=== PATIENT | female | born 1970 | race Caucasian/White ===

== ENCOUNTER 2024-02-02 10:36 | Inpatient (IN) | payer MEDICAID, SELFPAY ==
[2024-02-02] VITALS (20 sets, daily range): BP systolic 100–160; BP diastolic 53–93; PULSE 63–96; RESP 15–22; TEMP 36.5–36.6; O2SAT 97–100; BMI 19.8
--- NOTE | ~2024-02-02 | MR_ITS ---
EXAMINATION: MR brain/brain stem wo/w con DATE: 02/03/2024 07:13 INDICATION: Seizure. TECHNIQUE: Magnetic resonance imaging (MRI) of the brain and brainstem was performed without and with 11 mL MultiHance intravenous contrast. COMPARISON: Head CT 02/02/2024 FINDINGS: There are scattered areas of nonspecific increased T2-weighted signal intensity in the cere bral white matter, which is within normal limits for the patient's age. Left anterolateral to the clyde s, there is a 2.5 x 0.7 cm mass with signal similar to cerebral spinal fluid on T1 and T2-weighted im ages, but with restricted diffusion and isointensity to gamez matter on FLAIR images. There is no acut e ischemic infarct or intracranial hemorrhage. The ventricles are normal in size. The orbits are norm al. There is mild mucosal thickening in the paranasal sinuses. The mastoid air cells are normal. IMPRESSION: 1. 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 Reviewed, dictated and finalized at location A.
--- NOTE | ~2024-02-02 | CT_ITS ---
EXAMINATION: CT brain wo con DATE: 02/02/2024 14:11 INDICATION: Seizure TECHNIQUE: Computed tomography (CT) of the head was performed without intravenous contrast. Sagittal and coronal reconstructions were performed. The mA was adjusted according to patient size. Iterative reconstruction technique was employed. The dose-length product was 1589.00 mGy-cm. COMPARISON: None FINDINGS: Motion artifact is seen on the multiple repeated sequences however there are sufficient overlapping r egions without motion artifact spanning the entire brain to allow for diagnostic evaluation. No acute intracranial hemorrhage, acute infarction or abnormal extra axial fluid collection. Ventricles are n ormal and symmetric. No mass/mass effect. The orbits, paranasal sinuses and mastoid air cells are nor mal. IMPRESSION: 1. Normal brain. No acute intracranial process. Reviewed, dictated and finalized at location B.
--- NOTE | 2024-02-02 11:54 | ECG_ITS ---
Test Date: 2024-02-02 14:27:56 Measurements Intervals [place] Rate: 76 P: 78 DE: 152 QRS: 59 QRSD: 94 T: 49 QT: 381 QTc: 430 Interpretive Statements SINUS RHYTHM WITH SINUS ARRHYTHMIA POSSIBLE LEFT ATRIAL ENLARGEMENT INCOMPLETE RIGHT BUNDLE BRANCH BLOCK BORDERLINE ECG No previous ECG available for comparison Electronically Signed On 02-02-2024 18:37:23 CDT by Sean Johnson D.O.
--- NOTE | 2024-02-02 12:08 | ED.AMS ---
HPI - Altered Mental Status General Chief Complaint: Altered Mental Status Stated Complaint: AMS, disoriented following marijuana Time Seen by Provider: 02/02/24 12:07 History of Present Illness HPI narrative: Patient is a 53-year-old female who presents to the emergency department this afternoon due to concern for altered mental status. Patient was brought to our facility by EMS after her mother found confused and combative at home. Mother informed EMS that the patient has been smoking marijuana heavily recently. No a known history of seizure disorder. While in the emergency department, patient reportedly had a seizure like episode. She is currently alert and oriented times to on arrival, is combative and refusing to follow any commands or cooperate. Last known was last. Patient did state that she feels confused. Denies any blood thinner use, any recent falls or trauma and denies any pain including any headache, chest pain, or any abdominal pain. Related Data Allergies Allergy/AdvReac Type Severity Reaction Status Date / Time No Known Allergies Allergy Verified 02/02/24 14:17 Review of Systems Review of Systems: Unable to obtain a full review of systems secondary to patient's current agitated status. Exam Narrative: General: Altered and agitated, afebrile, in no acute distress. HEENT: PERRL, no rhinorrhea, no post nasal drip, oropharynx clear. Neck: Trachea midline, no JVD, no lymphadenopathy. Cardiovascular: Regular rate and rhythm, no murmurs, rubs or gallops, no peripheral edema. Respiratory: Clear to auscultation bilaterally, no tachypnea, no wheezing, no rhonchi, no rubs, no respiratory distress. Abdomen: Soft, nontender, nondistended, no rebound, no guarding, no peritoneal signs. Musculoskeletal: No joint swelling or deformity, normal muscle tone. Skin: No rashes or petechia, no signs of infection. Neurological: Altered, agitated, refusing to follow any comands, moving all 4 extremities spontaneously, no focal deficits within limitation of neurological examination. Course Vital Signs Vital signs: Vital Signs Temperature 97.7 F 02/02/24 10:59 Pulse Rate 82 02/02/24 10:59 Respiratory Rate 18 02/02/24 10:59 Blood Pressure 137/74 02/02/24 10:59 Pulse Oximetry 98 02/02/24 10:59 Oxygen Delivery Room Air 02/02/24 10:59 Temperature 97.7 F 02/02/24 10:59 Pulse Rate 75 02/02/24 13:16 Respiratory Rate 20 02/02/24 13:16 Blood Pressure 118/71 02/02/24 13:16 Pulse Oximetry 98 02/02/24 13:16 Oxygen Delivery Room Air 02/02/24 10:59 MDM - Altered Mental Status MDM Narrative Medical decision making narrative: The patient was evaluated by myself in the emergency department. History is obtained from patient who is an independent historian and physical exam was performed. External medical records were reviewed at this time. IV was established and pertinent tests were ordered. Patient was administered 2 mg of IV and Ativan initially. Patient is currently extremely agitated, refusing to follow any commands and ripping out her IV. She was placed on four-point restraints at this time and administered an additional 2 mg of IV Versed and 5 mg of IM a fall tall. EKG was obtained which revealed sinus rhythm rate of 76 beats per minute, no evidence of acute ischemia. EKG was independently interpreted by me and is currently pending official cardiology read. Laboratory results obtained revealing an elevated lactic acid of 8.6, mild elevation of CPK at 157, and anion gap metabolic acidosis with a gap of 20 likely secondary to lactic acidosis. Bicarb 15. Urinalysis unremarkable, urine drug screen test positive for cannabinoids. Imaging studies obtained included CT brain without IV contrast which was independently interpreted by me revealing no acute process, which is pending final radiology interpretation. Differential diagnosis considerations include infectious process, delirium,
[2024-02-02 12:33] LABS: Basophils Percent Auto 0.3 % (0.2-1.2); Eosinophils Absolute Auto 0.1 K/mm3 (0-0.3); Eosinophils Percent Auto 0.8 % (0-4.4); Hematocrit 40.3 % (37.0-47.0); Hemoglobin 13.5 g/dL (12.0-15.0); Immature Granulocyte Absolute 0.04 K/mm3 (0.00-0.031); Immature Granulocyte Percent A 0.4 % (0-0.5); Lymphocytes Absolute Auto 1.91 K/mm3 (0.9-3.2); Lymphocytes Percent Auto 17.6 % (18.3-44.2); Mean Corpuscular HGB Conc 33.5 g/dl (32-36); Mean Corpuscular Hemoglobin 30.3 pg (26-34); Mean Corpuscular Volume 90.4 fl (80-100); Mean Platelet Volume 10.6 fl (7.4-10.4); Monocytes Absolute Auto 0.6 K/mm3 (0.1-0.6); Monocytes Percent Auto 5.8 % (2.6-8.5); Neutrophils Absolute Auto 8.2 K/mm3 (1.3-6.7); Neutrophils Percent Auto 75.1 % (45.5-73.1); Platelet Count Result 268 k/mm3 (150-375); Red Blood Count 4.46 M/mm3 (4.2-5.4); Red Cell Distribution Width 13.5 % (11.5-14.5); White Blood Count 10.9 K/mm3 (4.5-10.0)
[2024-02-02 12:46] LABS: Anion Gap 20 mmol/L (4-12); Aspartate Amino Transferase 53 U/L (14-36); Bilirubin,Total 0.5 mg/dL (0.2-1.3); Blood Urea Nitrogen 16 mg/dL (7-17); Calcium 8.8 mg/dL (8.4-10.2); Carbon Dioxide 15 mmol/L (22-30); Chloride 102 mmol/L (98-107); Creatine Kinase 157 U/L (30-135); Estimated CRCL calculation 68 ml/min; Estimated Glomerular Filt Rate > 60; Glucose 139 mg/dL (65-110); Lactic Acid Reflex 8.6 mmol/L (0.7-2.0); Sodium 137 mmol/L (137-145)
[2024-02-02 12:47] LABS: Ethanol < 10 mg/dL (<10); Partial Thromboplastin Time 24.7 Seconds (22.3-36.8); Prothrombin Time 13.1 Seconds (11.1-14.7)
[2024-02-02 13:12] LABS: Add Urine Microscopic? YES; Appearance Urine Cloudy (Clear); Bacteria Urine None Seen /hpf; Bilirubin Urine Negative (Negative); Blood Urine 1+ (Negative); Color Urine Yellow (Yellow); Glucose Urine UA Negative (Negative); Ketones Urine Negative (Negative); Leukocyte Esterase Ur Negative LEU/UL (Negative); Need Manual Microscopic Reviewed; Nitrate Urine Negative (Negative); Protein Urine Trace mg/dL (Negative); RBC Urine 0-2 /hpf (0-2); Specific Grav Ur 1.015 (1.001-1.035); Squamous Epithelial Cell Urine None Seen /hpf (Few); Urobilinogen Urine 0.2 mg/dL (<2.0); WBC Urine 0-5 /hpf (0-3); pH Urine 5.5 (5.0-9.0)
[2024-02-02 13:27] LABS: Magnesium 1.9 mg/dL (1.6-2.3); Potassium 3.9 mmol/L (3.4-5.0)
[2024-02-02 13:34] LABS: Amphetamine Screen Urine Negative (Negative); Barbiturate Screen Urine Negative (Negative); Benzodiazepines Screen Urine Negative (Negative); Cannabinoid Screen Urine Positive (Negative); Cocaine Screen Urine Negative (Negative); Methadone Screen Urine Negative (Negative); Opiate Screen Urine Negative (Negative); Phencyclidine Screen Urine Negative (Negative)
[2024-02-02] MEDS: SODIUM CHLORIDE 0.9% IV 1,000 ML 999 ML IV CONT (14:00)
[2024-02-02] MEDS: LORazepam INJ (*CRX) 2 MG/ML VIAL ×2 (14:15→14:20)
--- NOTE | 2024-02-02 15:15 | PM.IMHP ---
H&P: HPI History of Present Illness Date/Time: 02/02/24 15:15 Chief Complaint: Altered Mental Status, Agitation Narrative: 53 y/o F presents here with altered mental status and agitation with PMH of marijuana use, hypothyroidism, and brain tumor. The patient presents here via EMS from home for further evaluation of agitation and altered mental status. HPI obtained through chart review, ED provider report, patient report, and patient's mother's report. The patient's mother reports that she found the patient confused, eyes rolled upward, back arched, foaming at the mouth, agitated/combative in her bed at around 09:30. Episode lasted for approximately 5 minutes. She heard a gurgling/growling sound from the patient's room which prompted her to investigate. No witnessed tremors or shaking at home by the patient's mother or EMS. EMS reported to the ED that upon their arrival the patient was confused and combative. Arrived A&O times 2-3 to the emergency department. The patient's mother reports she has a history of heavy marijuana use, brain tumor (was diagnosed in [place], no interventions were indicated unless patient developed symptoms), and frequent vasovagal events. Reports that she will pass out/vasovagal with blood draws, talking about eyes etc. After arrival to the emergency department, patient remained combative of and reported to the staff that she felt confused. Per mother, she noted second episode of back arching, eyes rolling upward, and stiffness that lasted for approximately 1 minute and ceased without intervention. Denied tongue trauma, loss of bowel or bladder, headache, chest pain, or shortness of breath during intake. Initial VS at presentation: 97.7? F, HR 82, RR 18, 137/74, and 98% on RA. ED workup showed: WBC 10.9, normal coags, gap 20, glucose 139, lactic acid 8.6, creatinine 0.7 and GFR >60, CK 157, and UA was cloudy with 1+ blood otherwise unremarkable. UDS positive for marijuana, negative ETOH. Head CT showed normal brain and no acute intracranial process. Review of Systems Review of Systems: ROS unobtainable: Yes unobtainable due to mental status PMFSH Past Medical History Medical History Anxiety and depression Complex partial seizure History of brain tumor Hypothyroidism Surgical History Surgical History History of hand surgery fixation of fractures to 2 fingers Social History Social History Smoking packs per day: 1 Smoking cigarettes per day: 20.0 Years smoked: 24 Smoking pack-years: 24.00 Smoking status: Former smoker Tobacco type: cigarettes Alcohol intake: current Drinks per week: 1 Substance use: current Substance use type: marijuana Other substance usage details: Daily marijuana Do You Feel Safe in your Home?: Yes Lack of Transportation: No Lack of Food: Never True Current Housing: I Have Housing Concerned About Future Housing: No Difficulty Paying Gas/Electric Bills: No Difficulty Paying for Meds: No Currently Unemployed: Decline to Answer Education: Don't Know Difficulty w/ Childcare or Family Care: No Spiritual care concerns: No Meds Home Medications and Allergies Home Medications Medication Instructions Recorded Confirmed Type levothyroxine 75 mcg tablet 75 mcg PO DAILY 02/02/24 02/02/24 History Allergies Allergy/AdvReac Type Severity Reaction Status Date / Time No Known Allergies Allergy Verified 02/02/24 17:22 Vital Signs Vital Signs - 24 hr 02/02/24 10:59 02/02/24 12:14 02/02/24 12:16 Temperature 97.7 F Pulse Rate 82 91 96 Respiratory Rate 18 18 22 H Blood Pressure 137/74 160/76 H 133/82 Pulse Oximetry 98 97 Oxygen Delivery Room Air 02/02/24 12:35 02/02/24 13:16 Temperature Pulse Rate 88 75 Respiratory Rate 15 20 Blood Press
[2024-02-02 15:28] LABS: Reflex Lactic Acid Yes or No Add Lactic
--- NOTE | 2024-02-02 15:54 | WPDNEURCNPN ---
Assessment and Plan Assessment and plan (1) Complex partial seizure: Code(s): G40.209 - Localization-related (focal) (partial) symptomatic epilepsy and epileptic syndromes with complex partial seizures, not intractable, without status epilepticus Status: Acute (2) Altered mental status: Qualifiers: Altered mental status type: disorientation Qualified Code(s): R41.0 - Disorientation, unspecified Code(s): R41.82 - Altered mental status, unspecified Status: Acute (3) History of brain tumor: Code(s): Z87.898 - Personal history of other specified conditions Status: Acute Plan Although the 2nd spell occurred before she had completely recovered but she was is significant improvement in the mental status according to the mother. I would suggest to start her on Keppra 1500 mg initially then followed by herself mg twice a day. MRI of the brain with and without contrast of the neck recommended. Initial CT scan without contrast did not show any significant abnormality. An EEG is also recommended. He should follow-up progress I alerted the mother regarding the possible effects of Keppra which may include competitive nurse particularly since there is a history of that number the left given the situation we can start from this medication she has had less likely his trach in case he does have brain tumor and she required any treatment thereof. It can be changed to a different anticonvulsant depending upon the need. Consult date: 02/02/24 HPI: Araceli Mcguire is a 53 year old female brought to the hospital by her mother and brother with a history that the mother heard a noise from her daughter's room and when she a [place] there she was unresponsive and having foaming from the mouth and her eyes had rolled up. No jerking of the body but she appeared confused or unresponsive. This went on for quite some time and after that she became combative. She was brought into the hospital by ambulance and was combative even during the journey. She had another spell which was brief in the waiting area and after that she became so combative that she required strain pre emergency room physician spoke to me and I went to see her in the emergency room previous he was given sedation and was in hands and feet to strain with her mother and brother by the side. the family members were very helpful and described that she has moved from [place] to this area 9 months ago. She was found to have a tumor in the brain 3 years ago but that did not require any intervention. She is advised that if she has any problem then this would need to be evaluated. There is no prior history of any seizures however she has had some psychiatric problems on ongoing basis. In the last several months he has been noted to be frequently argumentative or combative. Review of Systems Review of Systems: ROS unobtainable: Yes unobtainable due to mental status PMFSH Past Medical History Medical History (Updated 02/02/24 @ 15:58 by Johanna Seaman MD) Complex partial seizure Meds Home Medications and Allergies Allergies Allergy/AdvReac Type Severity Reaction Status Date / Time No Known Allergies Allergy Verified 02/02/24 14:17 Vital Signs Vital Signs - 24 hr 02/02/24 10:59 02/02/24 12:14 02/02/24 12:16 Temperature 97.7 F Pulse Rate 82 91 96 Respiratory Rate 18 18 22 H Blood Pressure 137/74 160/76 H 133/82 Pulse Oximetry 98 97 Oxygen Delivery Room Air 02/02/24 12:35 02/02/24 13:16 02/02/24 13:45 Temperature Pulse Rate 88 75 78 Respiratory Rate 15 20 18 Blood Pressure 116/71 118/71 108/72 Pulse Oximetry 97 98 98 Oxygen Delivery 02/02/24 14:15 02/02/24 14:45 02/02/24 15:00 Temperature Pulse Rate 75 72 75 Respiratory Rate 18 16 18 Blood Pressure 120/75 133/69 139/93 H Pulse Oximetry 98 100 100 Oxygen Delivery 02/02/24 13:31 02/02/24 15:30 Temperature Pulse Rate 77 75 Respiratory Rate
[2024-02-02 15:59] LABS: Lactic Acid 1.7 mmol/L (0.7-2.0)
[2024-02-02 16:00] LABS: Acetaminophen < 10 ug/mL (10-30); Ammonia < 9 umol/L (9-30); Salicylate < 1.0 mg/dL (2-20)
[2024-02-02 16:38] LABS: Influenza A QL RT-PCR Negative (Negative); Influenza B QL RT-PCR Negative (Negative); RSV RNA, RT-PCR Negative (Negative); SARS-CoV-2 RNA PCR Negative (Negative)
--- NOTE | 2024-02-02 16:59 | ADMGEN ---
This patient, Araceli Mcguire, was admitted to [facility] Room 333-01. Patient/family oriented to hospital policies and general routines including ID bracelet, bed and alarms, visiting hours, pain management, procedures, bathroom and other care routines, personal items, smoking policy, room service/diet, and visiting hours. Information on how to activate the Rapid Response Team has been discussed. Patient/Family are encouraged to report perceived risks to care and to ask questions if they do not understand what they are told or what they should do.
[2024-02-02] MEDS: levETIRAcetam 1500MG/NACL100ML 1,500 MG/100 ML BAG 400 MG IVPB (17:26)
[2024-02-02] MEDS: levETIRAcetam IV 750 MG in DEXTROSE 5% 100 ML 430 MG IVPB (21:46)
[2024-02-03] VITALS: PULSE 66
[2024-02-03 04:00] VITALS: PULSE 59
[2024-02-03 06:00] VITALS: BP 108/66; PULSE 56; RESP 20; TEMP 36.3; O2SAT 100
[2024-02-03] MEDS: LEVOTHYROXINE SODIUM 75 MCG TABLET PO (06:12)
[2024-02-03 06:17] LABS: Basophils Percent Auto 0.3 % (0.2-1.2); Eosinophils Absolute Auto 0.2 K/mm3 (0-0.3); Eosinophils Percent Auto 1.6 % (0-4.4); Hematocrit 37.5 % (37.0-47.0); Hemoglobin 12.6 g/dL (12.0-15.0); Immature Granulocyte Absolute 0.02 K/mm3 (0.00-0.031); Immature Granulocyte Percent A 0.2 % (0-0.5); Lymphocytes Absolute Auto 2.33 K/mm3 (0.9-3.2); Lymphocytes Percent Auto 24.7 % (18.3-44.2); Mean Corpuscular HGB Conc 33.6 g/dl (32-36); Mean Corpuscular Hemoglobin 30.1 pg (26-34); Mean Corpuscular Volume 89.5 fl (80-100); Mean Platelet Volume 10.8 fl (7.4-10.4); Monocytes Absolute Auto 0.9 K/mm3 (0.1-0.6); Monocytes Percent Auto 9.1 % (2.6-8.5); Neutrophils Percent Auto 64.1 % (45.5-73.1); Platelet Count Result 234 k/mm3 (150-375); Red Blood Count 4.19 M/mm3 (4.2-5.4); Red Cell Distribution Width 13.7 % (11.5-14.5); White Blood Count 9.4 K/mm3 (4.5-10.0)
[2024-02-03 06:28] LABS: Alanine Aminotransferase 29 U/L (6-35); Albumin Level 4.1 g/dL (3.5-5.1); Alkaline Phosphatase 69 U/L (38-126); Anion Gap 9 mmol/L (4-12); Aspartate Amino Transferase 56 U/L (14-36); Bilirubin,Total 0.4 mg/dL (0.2-1.3); Blood Urea Nitrogen 17 mg/dL (7-17); Calcium 9.3 mg/dL (8.4-10.2); Carbon Dioxide 24 mmol/L (22-30); Chloride 104 mmol/L (98-107); Estimated CRCL calculation 71 ml/min; Estimated Glomerular Filt Rate > 60; Glucose 83 mg/dL (65-110); Phosphorus 3.2 mg/dL (2.5-4.5); Potassium 3.8 mmol/L (3.4-5.0); Sodium 137 mmol/L (137-145)
[2024-02-03 08:00] VITALS: PULSE 61
--- NOTE | 2024-02-03 08:03 | PM.IMPN ---
Progress Note: A&P Assessment and Plan (1) Altered mental status: Qualifiers: Altered mental status type: disorientation Qualified Code(s): R41.0 - Disorientation, unspecified Code(s): R41.82 - Altered mental status, unspecified Status: Acute Assessment and Plan: - CT head: 1. Normal brain. No acute intracranial process. - seizure precautions - neurology consulted, Urszula PRATT. recommended MRI, Keppra, and EEG. - neurochecks q4h - UDS positive for marijuana, ETOH negative - add viral PCR, TSH, ammonia, Tylenol, and salicylate - UA unremarkable - requiring four-point restraints in ED, have since been able to be discontinued. No current agitation. - suspect new onset seizures given lactic acidosis, agitation, and history of presenting illness provided by patient's mother (2) Seizure: Code(s): R56.9 - Unspecified convulsions Status: Suspected Assessment and Plan: - see above - started on Keppra per Neurology direction - seizure precautions - mother educated by myself and Neurology provider, patient cannot drive until she is seizure-free for 6 months or until cleared by a healthcare provider (3) Acidosis, lactic: Code(s): E87.20 - Acidosis, unspecified Status: Acute Assessment and Plan: - lactic acid 8.6 -> 1.7 - IV fluids - suspect elevation secondary to suspected seizures Plan Diet: Regular GI Prophylaxis: Not currently indicated DVT Prophylaxis: SCDs Lines: Peripheral Code Status: Full code Subjective Date/time seen: 02/03/24 08:03 Review of Systems Review of Systems: ROS unobtainable: Yes unobtainable due to mental status Exam Narrative: General: appears comfortable, in no acute distress Respiratory: breathing is unlabored with even chest rise/fall, lungs are clear without wheezing, rhonchi, and crackles Cardiovascular: Rate and rhythm regular, normal s1s2, no murmur Abdomen: Soft, round, non-tender, active bowel sounds Extremities: No cyanosis, edema, clubbing. Pulses 2/2 Neuro: A&O x 4 Skin: Warm, dry, intact Objective Data Vital Signs Vital Signs: Vital Signs - 24 hr 02/02/24 10:59 02/02/24 12:14 02/02/24 12:16 Temperature 97.7 F Pulse Rate 82 91 96 Respiratory Rate 18 18 22 H Blood Pressure 137/74 160/76 H 133/82 Pulse Oximetry 98 97 Oxygen Delivery Room Air 02/02/24 12:35 02/02/24 13:16 02/02/24 13:45 Temperature Pulse Rate 88 75 78 Respiratory Rate 15 20 18 Blood Pressure 116/71 118/71 108/72 Pulse Oximetry 97 98 98 Oxygen Delivery 02/02/24 14:15 02/02/24 14:45 02/02/24 15:00 Temperature Pulse Rate 75 72 75 Respiratory Rate 18 16 18 Blood Pressure 120/75 133/69 139/93 H Pulse Oximetry 98 100 100 Oxygen Delivery 02/02/24 13:31 02/02/24 15:30 02/02/24 12:20 Temperature Pulse Rate 77 75 84 Respiratory Rate 18 20 Blood Pressure 112/73 128/75 Pulse Oximetry 98 99 Oxygen Delivery 02/02/24 15:00 02/02/24 15:15 02/02/24 15:45 Temperature Pulse Rate 71 77 Respiratory Rate 18 22 H Blood Pressure 147/87 H 113/72 Pulse Oximetry 99 98 Oxygen Delivery Room Air 02/02/24 16:00 02/02/24 16:15 02/02/24 16:30 Temperature Pulse Rate 80 83 84 Respiratory Rate 22 H 20 20 Blood Pressure 109/69 114/66 114/68 Pulse Oximetry 98 Oxygen Delivery 02/02/24 20:45 02/02/24 20:00 02/02/24 21:37 Temperature 97.8 F Pulse Rate 63 Respiratory Rate 18 Blood Pressure 100/53 L Pulse Oximetry 99 98 Oxygen Delivery Room Air Room Air 02/02/24 20:00 02/03/24 00:00 02/03/24 04:00 Temperature Pulse Rate 66 66 59 L Respiratory Rate Blood Pressure Pulse Oximetry Oxygen Delivery 02/03/24 06:00 Temperature 97.4 F L Pulse Rate 56 L Respiratory Rate 20 Blood Pressure 108/66 Pulse Oximetry 100 Oxygen Delivery Intake/Output Intake/Output: Intake & Output 01/31/24 02/01/24 02/02/24 02/03/24 23:5
[2024-02-03] MEDS: levETIRAcetam Tablet 250 MG, levETIRAcetam Tablet 500 MG 750 MG PO (09:26)
[2024-02-03 12:00] VITALS: PULSE 65
--- NOTE | 2024-02-03 12:52 | PM.DS ---
DS: Admitting Diagnosis Discharge Date 02/02 Admitting Diagnosis Seizure DS: Discharge Diagnosis Discharge Diagnosis (1) Altered mental status: Qualifiers: Altered mental status type: disorientation Qualified Code(s): R41.0 - Disorientation, unspecified Code(s): R41.82 - Altered mental status, unspecified Status: Acute (2) Seizure: Code(s): R56.9 - Unspecified convulsions Status: Suspected (3) Acidosis, lactic: Code(s): E87.20 - Acidosis, unspecified Status: Acute DS: Summary Hospital Course Reason for hospitalization: Seizure Hospital Course: This is a 53-year-old female who presented with seizure-like activity. She was loaded with Keppra 1 g and started on Keppra 750 mg b.i.d.. Neurology was consulted and recommended MRI. MRI showed a 2.5 x 0.7 cm mass in the left anterolateral to the wei likely an epidermoid. Neurology recommended follow-up with the neurosurgeon as an outpatient. They also recommended EEG as an outpatient and Neurology follow-up. She will discharge on Keppra 750 mg p.o. b.i.d.. She has been instructed not to drive or operate machinery for the next 6 months until she has been cleared by her neurologist. She has been instructed to call 911 for further seizure activity. Overall she did well was discharged in stable condition after 24 hours of monitoring. Time Spent with Patient Time attestation: Total time spent providing and/or coordinating discharge services: 65 Exam Narrative: General: appears comfortable, in no acute distress Respiratory: breathing is unlabored with even chest rise/fall, lungs are clear without wheezing, rhonchi, and crackles Cardiovascular: Rate and rhythm regular, normal s1s2, no murmur Abdomen: Soft, round, non-tender, active bowel sounds Extremities: No cyanosis, edema, clubbing. Pulses 2/2 Neuro: A&O x 4 Skin: Warm, dry, intact DS: Data Data Completed and Pending Labs on day of discharge: Labs from last 24 hours 02/03/24 02/02/24 02/02/24 05:58 15:38 13:12 WBC 9.4 RBC 4.19 L Hgb 12.6 Hct 37.5 MCV 89.5 MCH 30.1 MCHC 33.6 RDW 13.7 Plt Count 234 MPV 10.8 H Immature Gran % (Auto) 0.2 Neut % (Auto) 64.1 Lymph % (Auto) 24.7 Pershing % (Auto) 9.1 H Eos % (Auto) 1.6 Baso % (Auto) 0.3 Lymph # (Auto) 2.33 Pershing # (Auto) 0.9 H Eos # (Auto) 0.2 Baso # (Auto) 0.0 Abs Immat Gran (auto) 0.02 Absolute Neuts (auto) 6.0 Absolute Nucleated RBC 0.000 Nucleated RBC % 0.0 Sodium 137 Potassium 3.8 3.9 Chloride 104 Carbon Dioxide 24 Anion Gap 9 BUN 17 Creatinine 0.70 Estim Creat Clear Calc 71 Estimated GFR > 60 Glucose 83 Lactic Acid 1.7 Calcium 9.3 Phosphorus 3.2 Magnesium 2.0 1.9 Total Bilirubin 0.4 AST 56 H ALT 29 Alkaline Phosphatase 69 Ammonia < 9 L Total Protein 7.0 Albumin 4.1 TSH 1.060 Urine Color Urine Appearance Urine pH Ur Specific [place] Urine Protein Urine Glucose (UA) Urine Ketones Ur Blood (Man) Urine Nitrate Urine Bilirubin Urine Urobilinogen Add Ur Microanalysis Leukocyte Esterase Rfl Urine RBC Urine WBC Ur Squamous Epith Cells Urine Bacteria Urine Casts Salicylates < 1.0 L Urine Opiates Screen Urine Methadone Screen Acetaminophen < 10 L Ur Barbiturates Screen Ur Phencyclidine Scrn Ur Amphetamine Screen U Benzodiazepines Scrn Urine Cocaine Screen U Cannabinoids Screen Influenza A (RT-PCR) Negative Influenza B (RT-PCR) Negative RSV (RT-PCR) Negative SARS-CoV-2 RNA (RT-PCR) Negative 02/02/24 02/02/24 12:37 12:23 WBC RBC Hgb Hct MCV MCH MCHC RDW Plt Count MPV Immature Gran % (Auto) Neut % (Auto) Lymph % (Auto) Pershing % (Auto) Eos % (Auto) Baso % (Auto) Lymph # (Auto) Pershing # (Auto) Eos # (Aut
[2024-02-03 14:00] VITALS: BP 119/66; PULSE 63; RESP 18; TEMP 36.4; O2SAT 98
--- NOTE | 2024-02-03 16:55 | WPDNEUROPN ---
Progress Note: A&P Assessment and Plan (1) Brain tumor (benign): Code(s): D33.2 - Benign neoplasm of brain, unspecified Status: Acute (2) Complex partial seizure: Code(s): G40.209 - Localization-related (focal) (partial) symptomatic epilepsy and epileptic syndromes with complex partial seizures, not intractable, without status epilepticus Status: Acute Plan 1. Continue the Keppra 750 mg twice a day 2. 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 3. She should not drive for 3 months Subjective Date/time seen: 02/03/24 16:55 Interval history: The patient has not had any further seizures she is I reviewed her yesterday and started her on Keppra 1500 mg initially followed by 750 mg twice a day. MRI of the brain was performed which shows epidermoid cyst at along the left side of the mid wei. No other lesions were seen. She is fully conscious alert and cooperative to the nursing staff and did not require any more restrain. Review of Systems Review of Systems: All systems reviewed & are unremarkable except as noted in HPI and below Exam Const: General: cooperative, well developed and alert Orientation/consciousness: patient oriented x3 HENMT: Head: atraumatic Mouth: Yes oropharynx normal Eyes: Alignment and Position: position normal Pupils: Equal, round and reactive pupils present EOM: EOMs intact bilaterally Neck: Neck: supple Resp: Effort & Inspection: normal respiratory effort Neuro: General: patient oriented x3 Cranial nerves: Yes CN's II-XII intact bilaterally, Yes facial sensation intact/muscles of mastication intact, Yes Equal, round and reactive pupils present, Yes facial symmetry and Yes Midline tongue present Cognition (Neuro): normal cognition Speech: normal speech Motor exam (neuro): 5/5 motor strength present throughout Sensory Exam: normal sensation Coordination: [id number] test normal and Normal rapid alternating movements of the distal upper extremity present (Neuro) Objective Data Vital Signs Vital Signs: Vital Signs - 24 hr 02/02/24 20:45 02/02/24 20:00 02/02/24 21:37 Temperature 97.8 F Pulse Rate 63 Respiratory Rate 18 Blood Pressure 100/53 L Pulse Oximetry 99 98 Oxygen Delivery Room Air Room Air 02/02/24 20:00 02/03/24 00:00 02/03/24 04:00 Temperature Pulse Rate 66 66 59 L Respiratory Rate Blood Pressure Pulse Oximetry Oxygen Delivery 02/03/24 06:00 02/03/24 08:00 02/03/24 08:00 Temperature 97.4 F L Pulse Rate 56 L 61 Respiratory Rate 20 Blood Pressure 108/66 Pulse Oximetry 100 Oxygen Delivery Room Air 02/03/24 12:00 02/03/24 14:00 Temperature 97.6 F Pulse Rate 65 63 Respiratory Rate 18 Blood Pressure 119/66 Pulse Oximetry 98 Oxygen Delivery Intake/Output Intake/Output: Intake & Output 01/31/24 02/01/24 02/02/24 02/03/24 23:59 23:59 23:59 23:59 Intake Total 1107.5 478 Output Total 1400 Balance 1107.5 -922 Meds/Results Medications: Active Medications Generic Name Dose Route Start Last Admin Trade Name Freq PRN Reason Stop Dose Admin Levetiracetam 250 mg/ 750 mg 02/03/24 09:00 02/03/24 09:26 Levetiracetam 500 mg PO 750 mg Q12HR CONCEPCIÓN Administration Levothyroxine Sodium 75 mcg 02/03/24 06:30 02/03/24 06:12 Levothyroxine Sodium 75 Mcg Tablet PO 75 mcg DAILY@0630 CONCEPCIÓN Administration Radiology Results: ITS Impressions Head CT 02/02/24 14:19 IMPRESSION: 1. Normal brain. No acute intracranial process. Brain MRI 02/03/24 07:18 IMPRESSION: 1. 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 Labs Labs: Laboratory Results - last 24 hr 02/03/24 05:58 WBC 9.4 RBC 4.19 L Hgb 12.6 Hct 37.5 MCV 89.5 MCH 30.1 MCHC 33.6 RDW 13.7 Plt Count 234 MPV 10.8 H Immature Gran % (Auto) 0.2 Ne
== END 2024-02-03 17:00 | disposition home or self-care (01) | DRG 101 ==
LOC: ANHED 15:07 → ANH3MEDSUR 16:13
PROVIDERS: Physician Assistant; Student in an Organized Health Care Education/Training Program; Admitting Provider Internal Medicine; Emergency Provider Emergency Medicine; Visit Provider Nurse Practitioner Acute Care
DX: R56.9 Unspecified convulsions (principal); E87.20 Acidosis, unspecified; D33.2 Benign neoplasm of brain, unspecified; E03.9 Hypothyroidism, unspecified; F41.9 Anxiety disorder, unspecified; F32.A Depression, unspecified; F12.90 Cannabis use, unspecified, uncomplicated; Z20.822 Contact with and (suspected) exposure to COVID-19; Z87.891 Personal history of nicotine dependence
CPT/HCPCS: 36415; 70450; 70553; 80053; 80307; 81001; 82140; 82550; 83605; 83735; 84100; 84132; 84443; 85025; 85610; 85730; 87637; 93005; 96374; 99285; A9270; A9577; J1953; J2060; J2250; J7030